=== PATIENT | female | born 1995 | race Caucasian/White ===

== ENCOUNTER 2020-01-30 11:33 | Emergency (ER) | payer OTHER, SELFPAY ==
[2020-01-30 11:42] VITALS: BP 122/78; PULSE 115; RESP 18; TEMP 36.8; O2SAT 98; BMI 25.0
--- NOTE | 2020-01-30 11:55 | ED_ITS ---
HPI - General Adult General Chief complaint: General Medical Stated complaint: covid test,fever,vomiting Time Seen by Provider: 01/30/20 11:44 Source: patient Mode of arrival: ambulatory Limitations: no limitations History of Present Illness HPI narrative: 24 y/o healtyh female presenting with headache, nausea and vomiting for the last 2 days. She states she also has muscle aches and fatigue. 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 She is up to date on her flu vaccine. She denies chance of , LMP a few days ago. No abdominal pain, chest pain, SOB, cough. MD complaint: flu-like symptoms Onset (ago): day(s) (2) Location: head Radiation: non-radiation Severity: moderate Quality: aching Pain Consistency: intermittent Relieving factors: medication Exacerbating factors: eating Associated symptoms: headaches, loss of appetite and nausea/vomiting Treatments prior to arrival: none Related Data Previous Rx's Medication Instructions Recorded ondansetron HCl [Zofran] 4 mg PO Q8H PRN #10 tab 01/30/20 Allergies Allergy/AdvReac Type Severity Reaction Status Date / Time No Known Allergies Allergy Verified 01/30/20 11:45 Review of Systems Review of Systems: Constitutional: No Fever, No Chills ENT/Mouth: + sore throat, No Rhinorrhea Eyes: No Eye Pain, No Swelling, No Redness Cardiovascular: No Chest Pain, No SOB, No Orthopnea, No Edema Respiratory: No Cough, No Sputum, No Wheezing, No dyspnea Gastrointestinal: + Nausea, + Vomiting, No Diarrhea, No abdominal Pain Genitourinary: No Dysuria, No Urinary Frequency, No Hematuria Musculoskeletal: No joint pain, + Myalgias Skin: No Skin Lesions, No rash Neuro: No Weakness, No Numbness, No Dizziness, + Headache PMFSH Past Medical History Attestation statement: The following information was validated with the patient. Medical History No known health problems Social History Social History Alcohol intake: never Smoked in Last 30 Days: No Use of substances other than those prescribed or required for medical reasons: No Advance Directives: No Advance Directives Information Provided: Yes Physical Exam Vital Signs: Vital Signs: Last Vital Signs Temp 98.2 F 01/30/20 11:42 Pulse 115 H 11/29/20 11:42 Resp 18 01/30/20 11:42 BP 122/78 01/30/20 11:42 Pulse Ox 98 01/30/20 11:42 Body Mass Index 25.0 Appearance: Alert. Oriented X3. No acute distress. Eyes: Pupils equal, round and reactive to light. ENT: Pharynx normal. Neck: Normal inspection. Neck supple. CVS: Normal heart rate and rhythm. Pulses normal. Respiratory: No respiratory distress. Breath sounds normal. Abdomen: Soft and nontender. +BS x4 Neuro: Oriented X 3. Non-focal Course Course Course Narrative: 24 y/o female presenting with headache, N/V and malaise. +COVID exposure. Mild tachycardia on arrival but patient appears well, talking on her cell phone. No vomiting since this morning. Tolerating PO juice and isatu gianni. She denies palpitations and chest pain. No SOB. Will test for COVID and d/c home. Warning signs discussed on when to return to the hospital. Critical Care Time Critical Care Time Critical Care Time: No Discharge Plan Discharge Clinical Impression: Acute viral syndrome Patient Disposition: Home, Self-Care Instructions: Viral Syndrome (ED), COVID-19 (Coronavirus Disease 2019) (ED) Additional Instructions: You were tested for COVID-19 today - we will call you with the results in 2-6 days. [facility] this week as planned. Do not go out in public while you are feeling ill, if your COVID-19 is positive you cannot go out in public for 10-14 days. Continue to wear your mask and wash your hands frequently. Continue to take over the counter cold and flu medications as needed for your symptoms. Take Tylenol and/or Motrin as needed for fever and body aches. Rest, stay hydrated. If you develop difficultly breathing, shortness of breath or chest pain call 911 or come back to the hospital for further evaluation. Follow up with your doctor this week. Prescriptions: New ondansetron HCl [Zofran] 4 mg tablet 4 mg PO Q8H PRN (Reason: nausea and vomiting) Qty: 10 RF: 0
== END 2020-01-30 12:09 | disposition home or self-care (01) ==
PROVIDERS: Physician Assistant; Emergency Provider Internal Medicine; PCP Internal Medicine
DX: B34.9 Viral infection, unspecified (principal); R50.9 Fever, unspecified; R11.10 Vomiting, unspecified; Z79.899 Other long term (current) drug therapy; Z20.828 Contact with and (suspected) exposure to other viral communicable diseases
CPT/HCPCS: 99283; U0003

== ENCOUNTER 2020-03-07 16:09 | Outpatient (REF) | payer OTHER, SELFPAY | END 2020-03-07 16:10 | disposition home or self-care (01) | LOC: HO.LAB 16:09 | PROVIDERS: Visit Provider Internal Medicine | DX: Z20.828 Contact with and (suspected) exposure to other viral communicable diseases (principal) | CPT/HCPCS: 36415; C9803; U0003 ==

== ENCOUNTER 2022-03-05 12:25 | Emergency (ER) | payer OTHER, SELFPAY ==
--- NOTE | ~2022-03-05 | US_ITS ---
EXAMINATION: US OBSTETRICAL ULTRASOUND CLINICAL INFORMATION: Vaginal bleeding and pain. Patient reportedly at 18 weeks of . LMP: 11/07/2021. COMPARISON: None. TECHNIQUE: Sonographic imaging of the pelvis is performed using transabdominal and transvaginal transducers. FINDINGS: UTERUS AND CERVIX The anteflexed, anteverted uterus measures 8.8 x 3.6 x 4.9 cm ([id number] x AP x transverse dimension). The myometrial echotexture is normal. No evidence of leiomyoma. The cervix is approximately 3 cm in length. The endometrium is mildly heterogeneous but without evidence of focal lesion and there is no abnormal vascularity within the endometrium which measures up to 1.2 cm AP (image 5 of 64). ADNEXA: The right ovary is 5.1 x 5.2 x 4.8 cm, volume of 67 mL. There is a 4.4 x 4.6 x 4.8 cm simple cyst of the right ovary. Left ovary is 3.2 x 2 x 2.6 cm, volume of 8.6 mL. No adnexal masses. FREE FLUID: No pelvic free fluid. US/US OB pelvic and transvaginal IMPRESSION: No evidence of either an intrauterine or ectopic . Given the history of vaginal bleeding during , a spontaneous is suspected. Recommend correlation with the quantitative beta hCG levels. 4.8 cm simple cyst of the right ovary is almost certainly benign. No follow-up imaging is recommended for a simple cyst of this size in a premenopausal patient (if the cyst is asymptomatic).
--- NOTE | 2022-03-05 13:05 | ED_ITS ---
HPI - General Chief complaint: Vaginal Bleeding <SHE Zhao - Last Filed: 03/05/22 13:11> Stated complaint: Miscarriage <SHE Zhao - Last Filed: 03/05/22 13:11> Time Seen by Provider: 03/05/22 14:05 <SHE Zhao - Last Filed: 03/05/22 13:11> Source: patient <Minnie Bailey DO - Last Filed: 03/05/22 17:00> Mode of arrival: ambulatory <Minnie Bailey DO - Last Filed: 03/05/22 17:00> Limitations: no limitations <Minnie Bailey DO - Last Filed: 03/05/22 17:00> History of Present Illness HPI Narrative: 26 yo female G1 LMP 11/07 test positive via urine and blood on January US at [facility] confirmed IUP and dates she states she is 16 weeks - she has not had OB care otherwise. Her course notes February 01 a roberson of significant blood that resolved and at that time she did not notice a passage of tissue and the bleeding stopped. [place] was seen in [place] in the last month for abdominal pain no bleeding but no labs urine or US were done. She notes since yesterday 5pm she has been passing stringy clots and going t hrough 2 pads per hour. She has cramping as well. <Minnie Bailey DO - Last Filed: 03/05/22 17:00> MD Complaint: abdominal pain and vaginal bleeding <Minnie Bailey DO - Last Filed: 03/05/22 17:00> Onset (ago): day(s) (last night around 5pm) <Minnie Bailey DO - Last Filed: 03/05/22 17:00> Pain Consistency: intermittent <Minnie Bailey DO - Last Filed: 03/05/22 17:00> Location: pelvis <Minnie Bailey DO - Last Filed: 03/05/22 17:00> Severity: mild <Minnie Bailey DO - Last Filed: 03/05/22 17:00> Quality: Cramping <Minnie Bailey DO - Last Filed: 03/05/22 17:00> Radiation: pelvis <Minnie Bailey DO - Last Filed: 03/05/22 17:00> Relieving factors: none <Minnie Bailey DO - Last Filed: 03/05/22 17:00> Exacerbating factors: none <Minnie Bailey DO - Last Filed: 03/05/22 17:00> Associated symptoms: denies other symptoms <Minnie Bailey DO - Last Filed: 03/05/22 17:00> Vaginal bleeding: heavy and clots <Minnie Bailey DO - Last Filed: 03/05/22 17:00> Date of Last Menstrual Period: 11/07/21 <Minnie Bailey DO - Last Filed: 03/05/22 17:00> Patient : Yes <Minnie Bailey DO - Last Filed: 03/05/22 17:00> Number of Weeks : 18 <Minnie Bailey DO - Last Filed: 03/05/22 17:00> OB History - Current : other (has not seen OB just been to [facility] ED once in January) <Minnie Bailey DO - Last Filed: 03/05/22 17:00> care: none <Minnie Bailey DO - Last Filed: 03/05/22 17:00> Related Data Home medications: Previous Rx's Medication Instructions Recorded ondansetron HCl 4 mg tablet 4 mg PO Q8H PRN nausea and 01/30/20 (Zofran) vomiting #10 tabs <SHE Zhao - Last Filed: 03/05/22 13:11> Allergies/Adverse reactions: Allergies Allergy/AdvReac Type Severity Reaction Status Date / Time No Known Allergies Allergy Verified 01/30/20 11:45 <SHE Zhao Last Filed: 03/05/22 13:11> Review of Systems Review of Systems: Constitutional : No Fever, No Chills ENT/Mouth : No sore throat, No Rhinorrhea Eyes: No Eye Pain, No Redness Cardiovascular : No Chest Pain, No SOB Respiratory : No Cough, No Sputum, No Wheezing Gastrointestinal : positive Nausea, No Vomiting, No Diarrhea, positive abdominal pain, Genitourinary : positive irregular bleeding, No Dysuria, No Urinary Frequency, positive pelvic pain Musculoskeletal : No Myalgias Skin : No rash Neuro : No Weakness, No Headache Psych : No Anxiety/Panic, No Depression Heme/Lymph: No bruising, No Lymphadenopathy Endocrine : No Polyuria, No Polydipsia All other systems reviewed and are negative <Minnie Bailey DO - Last Filed: 03/05/22 17:00> [facility] Past Medical History Attestation statement: The following information was validated with the patient. <Minnie BaileyDO - Last Filed: 03/05/22 17:00> Medical History: Medical History (Updated 03/05/22 @ 16:34 by Emiliano Hamm MD) No known health problems <SHE Zhao - Last Filed: 03/05/22 13:11> Date of Last Menstrual Period: 11/07/21 <Minnie Bailey DO - Last Filed: 03/05/22 17:00> Social History Social History: Social History Alcohol intake: never Patient Tobacco Use Status: Never used Tobacco Smoked in Last 30 Days: No Use of substances other than those prescribed or required for medical reasons: No Advance Directives: No Advance Directives Information Provided: No Patient : Yes <SHE Zhao - Last Filed: 03/05/22 13:11> Physical Exam Vital Signs: Vital Signs: Last Vital Signs Temp 98.6 F 03/05/22 13:06 Pulse 89 03/05/22 13:06 Resp 18 03/05/22 13:06 BP 112/72 03/05/22 13:06 Pulse Ox 100 03/05/22 13:06 O2 Del Method 03/05/22 13:06 BMI result Body Mass Index 20.7 <SHE Zhao - Last Filed: 03/05/22 13:11> Vital Signs: Last Vital Signs Temp 98.6 F 03/05/22 13:06 Pulse 89 03/05/22 13:06 Resp 18 03/05/22 13:06 BP 112/72 03/05/22 13:06 Pulse Ox 100 03/05/22 13:06 O2 Del Method 03/05/22 13:06 BMI result Body Mass Index 20.7 <Minnie Bailey DO - Last Filed: 03/05/22 17:00> Appearance: Alert. Oriented X3. No acute distress. Eyes: Pupils equal, round and reactive to light. ENT: Pharynx normal. Neck: Normal inspection. Neck supple. CVS: Normal heart rate and rhythm. Pulses normal. Respiratory: No respiratory distress. Breath sounds normal. Abdomen: Soft and nontender. : moderate bleeding, no clots 8 scopettes of blood Skin: Skin warm and dry. Normal skin color. Normal skin turgor. Extremities: No lower extremity edema. No calf ttp Neuro: Oriented X 3. No motor deficit. No sensory deficit. <Minnie Bailey DO - Last Filed: 03/05/22 17:00> Course Course Course Narrative: RME--26yo F at about 18 weeks gestation, LMP 12/07/21 c/o vaginal bleeding with clots since last night w/ assoc lower abdominal pain. Admits to filling 2 pads every hour. Admits to poor pre-arnel care Nontoxic appearing, VSS, pt will be next to go back to main ED Labs, UA, ABO/RH, OB US, IVF ordered in triage <SHE Zhao - Last Filed: 03/05/22 13:11> RME--26yo F at about 18 weeks gestation, LMP 12/07/21 c/o vaginal bleeding with clots since last night w/ assoc lower abdominal pain. Admits to filling 2 pads every hour. Admits to poor pre- care Nontoxic appearing, VSS, pt will be next to go back to main ED Labs, UA, ABO/RH, OB US, IVF ordered in triage [facility] records US shows 01/11 IUP HR 178, measured with LMP dates at that time O POS H/H stable declines OB exam with Dr. Hamm - he recommends 48 hour hcg, swabs, send home with precautions <Minnie Bailey DO - Last Filed: 03/05/22 17:00> Medications Administered Discontinued Medications Generic Name Dose Route Start Last Admin Trade Name Freq PRN Reason Stop Dose Admin Sodium Chloride 1,000 mls @ 999 mls/hr 03/05/22 13:15 03/05/22 15:37 Ns IV 03/05/22 14:15 Infused .Q1H1M STEFFEN Infusion <SHE Zhao - Last Filed: 03/05/22 13:11> Medications Administered Discontinued Medications Generic Name Dose Route Start Last Admin Trade Name Freq PRN Reason Stop Dose Admin Sodium Chloride 1,000 mls @ 999 mls/hr 03/05/22 13:15 03/05/22 15:37 Ns IV 03/05/22 14:15 Infused .Q1H1M STEFFEN Infusion <Minnie Bailey DO - Last Filed: 03/05/22 17:00> Medical Decision Making Medical Decision Making [facility] Narrative: 26 yo female G1 here with vaginal bleeding - 16 weeks dates = to US at [facility] from US in january, records are requested. She notes vaginal bleeding since yesterday and pain. Her US shows retained POC - quant ordered, type and screen will consult OBGYN for recommendations. Suspect incomplete miscarriage at this time. Patient kept NPO on arrival after I saw her I have reviewed and interpreted the patient's labs and reviewed and interpreted radiologist readings of studies done in ED today. <Minnie Bailey DO - Last Filed: 03/05/22 17:00> Differential Diagnosis Differential Diagnoses: The differential diagnosis associated with the presentation includes <Minnie Bailey DO - Last Filed: 03/05/22 17:00> threatened miscarriage, vaginal bleeding <Minnie Bailey DO - Last Filed: 03/05/22 17:00> Consult Healthcare Provider Management of the patient was discussed with: Contract Modeler (OB - Dr. Hamm will evaluate patient) <Minnie Bailey DO - Last Filed: 03/05/22 17:00> Lab Data [facility] Lab Attestation statement: I reviewed the patient's lab results. <Minnie Bailey DO - Last Filed: 03/05/22 17:00> Result Diagrams: : 03/05/22 14:06 03/05/22 14:06 <SHE Zhao - Last Filed: 03/05/22 13:11> Labs: Lab Results 03/05/22 03/05/22 03/05/22 Range/Units 13:22 14:06 14:06 WBC 6.7 (4.8-10.8) X10*3/uL RBC 4.49 (4.20-5.50) X10*6/uL Hgb 14.1 (12.0-16.0) g/dl Hct 42.6 (37.0-47.0) % MCV 94.9 (80.0-98.0) fL MCH 31.4 (27.0-33.0) pg MCHC 33.1 (31.0-35.0) g/dl RDW 12.2 (11.0-16.0) % Plt Count 234 (160-400) X10*3/uL MPV 9.4 (9.4-12.3) fL Immature Gran % (Auto) 0.1 (0.0-0.4) % Neut % (Auto) 71.1 (45-73) % Lymph % (Auto) 22.4 (20-40) % [place] % (Auto) 5.6 (2-11) % Eos % (Auto) 0.7 (0-4) % Baso % (Auto) 0.1 (0-2) % Lymph # (Auto) 1.5 (1.2-4.9) X10*3/uL [place] # (Auto) 0.4 (0.1-1.2) X10*3/uL Eos # (Auto) 0.1 (0.0-0.4) X10*3/uL Baso # (Auto) 0.0 (0.0-0.2) X10*3/uL Abs Immat Gran (auto) 0.01 (0.00-0.03) X10*3/uL Absolute Neuts (auto) 4.8 (2.0-8.3) x10*3/uL Absolute Nucleated RBC 0.000 (0.0-0.012) X10*3/uL Nucleated RBC % (auto) 0.0 (0.0-0.2) /100WBC PT (10.0-13.1) SEC INR (0.9-1.1) Sodium 139 (135-145) mmol/L Potassium 4.1 (3.3-5.1) mmol/L Chloride 106 (96-108) mmol/L Carbon Dioxide 29 (22-29) mmol/L Anion Gap 8 L (12-20) BUN 9 (9-16) mg/dL Creatinine 0.72 (0.5-1.4) mg/dL Estim Creat Clear Calc 107.8 Estimated GFR > 60 Random Glucose 88 (60-115) mg/dL Calcium 9.6 (8.4-10.2) mg/dL Magnesium 1.8 (1.6-2.6) mg/dL Total Bilirubin 1.5 H (0.0-1.0) mg/dL Direct Bilirubin 0.4 (0.0-0.5) mg/dL AST 13 (5-31) U/L ALT 6 (0-31) U/L Alkaline Phosphatase 48 (39-117) U/L Total Protein 6.8 (6.5-8.0) g/dL Albumin 4.2 (3.5-5.0) g/dL Lipase 35 (8-78) U/L Beta HCG, Quant 17 mIU/mL Urine Color ORANGE Urine Appearance Cloudy Urine pH 5.5 (5.0-9.0) Ur Specific [place] >= 1.030 H (1.005-1.025) Urine Protein 30 (1+) H (Neg-Trace) mg/dL Urine Glucose (UA) Negative (Negative) mg/dL Urine Ketones Trace (Negative) mg/dL Urine Blood Large (3+) H (Negative) Urine Nitrite Negative (Negative) Ur Leukocyte Esterase Negative (Negative) Urine RBC >20 H (0-2) /HPF Urine WBC 0-5 (0-5) /HPF Ur Squamous Epith Cells 3-5 (0-2) /HPF Urine Bacteria None Seen (None Seen) Hyaline Casts 0-2 (0-2) /LPF COVID-19 (LILIANA) (Negative) COVID-19 Clin Com Blood Type 03/05/22 03/05/22 03/05/22 Range/Units 14:06 14:38 15:06 WBC (4.8-10.8) X10*3/uL RBC (4.20-5.50) X10*6/uL Hgb (12.0-16.0) g/dl Hct (37.0-47.0) % MCV (80.0-98.0) fL MCH (27.0-33.0) pg MCHC (31.0-35.0) g/dl RDW (11.0-16.0) % Plt Count (160-400) X10*3/uL MPV (9.4-12.3) fL Immature Gran % (Auto) (0.0-0.4) % Neut % (Auto) (45-73) % Lymph % (Auto) (20-40) % [place] % (Auto) (2-11) % Eos % (Auto) (0-4) % Baso % (Auto) (0-2) % Lymph # (Auto) (1.2-4.9) X10*3/uL [place] # (Auto) (0.1-1.2) X10*3/uL Eos # (Auto) (0.0-0.4) X10*3/uL Baso # (Auto) (0.0-0.2) X10*3/uL Abs Immat Gran (auto) (0.00-0.03) X10*3/uL Absolute Neuts (auto) (2.0-8.3) x10*3/uL Absolute Nucleated RBC (0.0-0.012) X10*3/uL Nucleated RBC % (auto) (0.0-0.2) /100WBC PT 12.1 (10.0-13.1) SEC INR 1.1 (0.9-1.1) Sodium (135-145) mmol/L Potassium (3.3-5.1) mmol/L Chloride (96-108) mmol/L Carbon Dioxide (22-29) mmol/L Anion Gap (12-20) BUN (9-16) mg/dL Creatinine (0.5-1.4) mg/dL Estim Creat Clear Calc Estimated GFR Random Glucose (60-115) mg/dL Calcium (8.4-10.2) mg/dL Magnesium (1.6-2.6) mg/dL Total Bilirubin (0.0-1.0) mg/dL Direct Bilirubin (0.0-0.5) mg/dL AST (5-31) U/L ALT (0-31) U/L Alkaline Phosphatase (39-117) U/L Total Protein (6.5-8.0) g/dL Albumin (3.5-5.0) g/dL Lipase (8-78) U/L Beta HCG, Quant mIU/mL Urine Color Urine Appearance Urine pH (5.0-9.0) Ur Specific [place] (1.005-1.025) Urine Protein (Neg-Trace) mg/dL Urine Glucose (UA) (Negative) mg/dL Urine Ketones (Negative) mg/dL Urine Blood (Negative) Urine Nitrite (Negative) Ur Leukocyte Esterase (Negative) Urine RBC (0-2) /HPF Urine WBC (0-5) /HPF Ur Squamous Epith Cells (0-2) /HPF Urine Bacteria (None Seen) Hyaline Casts (0-2) /LPF COVID-19 (LILIANA) Negative (Negative) COVID-19 Clin Com See Note Blood Type O Positive <SHE Zhao - Last Filed: 03/05/22 13:11> Lab Results 03/05/22 03/05/22 03/05/22 Range/Units 13:22 14:06 14:06 WBC 6.7 (4.8-10.8) X10*3/uL RBC 4.49 (4.20-5.50) X10*6/uL Hgb 14.1 (12.0-16.0) g/dl Hct 42.6 (37.0-47.0) % MCV 94.9 (80.0-98.0) fL MCH 31.4 (27.0-33.0) pg MCHC 33.1 (31.0-35.0) g/dl RDW 12.2 (11.0-16.0) % Plt Count 234 (160-400) X10*3/uL MPV 9.4 (9.4-12.3) fL Immature Gran % (Auto) 0.1 (0.0-0.4) % Neut % (Auto) 71.1 (45-73) % Lymph % (Auto) 22.4 (20-40) % [place] % (Auto) 5.6 (2-11) % Eos % (Auto) 0.7 (0-4) % Baso % (Auto) 0.1 (0-2) % Lymph # (Auto) 1.5 (1.2-4.9) X10*3/uL [place] # (Auto) 0.4 (0.1-1.2) X10*3/uL Eos # (Auto) 0.1 (0.0-0.4) X10*3/uL Baso # (Auto) 0.0 (0.0-0.2) X10*3/uL Abs Immat Gran (auto) 0.01 (0.00-0.03) X10*3/uL Absolute Neuts (auto) 4.8 (2.0-8.3) x10*3/uL Absolute Nucleated RBC 0.000 (0.0-0.012) X10*3/uL Nucleated RBC % (auto) 0.0 (0.0-0.2) /100WBC PT (10.0-13.1) SEC INR (0.9-1.1) Sodium 139 (135-145) mmol/L Potassium 4.1 (3.3-5.1) mmol/L Chloride 106 (96-108) mmol/L Carbon Dioxide 29 (22-29) mmol/L Anion Gap 8 L (12-20) BUN 9 (9-16) mg/dL Creatinine 0.72 (0.5-1.4) mg/dL Estim Creat Clear Calc 107.8 Estimated GFR > 60 Random Glucose 88 (60-115) mg/dL Calcium 9.6 (8.4-10.2) mg/dL Magnesium 1.8 (1.6-2.6) mg/dL Total Bilirubin 1.5 H (0.0-1.0) mg/dL Direct Bilirubin 0.4 (0.0-0.5) mg/dL AST 13 (5-31) U/L ALT 6 (0-31) U/L Alkaline Phosphatase 48 (39-117) U/L Total Protein 6.8 (6.5-8.0) g/dL Albumin 4.2 (3.5-5.0) g/dL Lipase 35 (8-78) U/L Beta HCG, Quant 17 mIU/mL Urine Color ORANGE Urine Appearance Cloudy Urine pH 5.5 (5.0-9.0) Ur Specific [place] >= 1.030 H (1.005-1.025) Urine Protein 30 (1+) H (Neg-Trace) mg/dL Urine Glucose (UA) Negative (Negative) mg/dL Urine Ketones Trace (Negative) mg/dL Urine Blood Large (3+) H (Negative) Urine Nitrite Negative (Negative) Ur Leukocyte Esterase Negative (Negative) Urine RBC >20 H (0-2) /HPF Urine WBC 0-5 (0-5) /HPF Ur Squamous Epith Cells 3-5 (0-2) /HPF Urine Bacteria None Seen (None Seen) Hyaline Casts 0-2 (0-2) /LPF COVID-19 (LILIANA) (Negative) COVID-19 Clin Com Blood Type 03/05/22 03/05/22 03/05/22 Range/Units 14:06 14:38 15:06 WBC (4.8-10.8) X10*3/uL RBC (4.20-5.50) X10*6/uL Hgb (12.0-16.0) g/dl Hct (37.0-47.0) % MCV (80.0-98.0) fL MCH (27.0-33.0) pg MCHC (31.0-35.0) g/dl RDW (11.0-16.0) % Plt Count (160-400) X10*3/uL MPV (9.4-12.3) fL Immature Gran % (Auto) (0.0-0.4) % Neut % (Auto) (45-73) % Lymph % (Auto) (20-40) % [place] % (Auto) (2-11) % Eos % (Auto) (0-4) % Baso % (Auto) (0-2) % Lymph # (Auto) (1.2-4.9) X10*3/uL [place] # (Auto) (0.1-1.2) X10*3/uL Eos # (Auto) (0.0-0.4) X10*3/uL Baso # (Auto) (0.0-0.2) X10*3/uL Abs Immat Gran (auto) (0.00-0.03) X10*3/uL Absolute Neuts (auto) (2.0-8.3) x10*3/uL Absolute Nucleated RBC (0.0-0.012) X10*3/uL Nucleated RBC % (auto) (0.0-0.2) /100WBC PT 12.1 (10.0-13.1) SEC INR 1.1 (0.9-1.1) Sodium (135-145) mmol/L Potassium (3.3-5.1) mmol/L Chloride (96-108) mmol/L Carbon Dioxide (22-29) mmol/L Anion Gap (12-20) BUN (9-16) mg/dL Creatinine (0.5-1.4) mg/dL Estim Creat Clear Calc Estimated GFR Random Glucose (60-115) mg/dL Calcium (8.4-10.2) mg/dL Magnesium (1.6-2.6) mg/dL Total Bilirubin (0.0-1.0) mg/dL Direct Bilirubin (0.0-0.5) mg/dL AST (5-31) U/L ALT (0-31) U/L Alkaline Phosphatase (39-117) U/L Total Protein (6.5-8.0) g/dL Albumin (3.5-5.0) g/dL Lipase (8-78) U/L Beta HCG, Quant mIU/mL Urine Color Urine Appearance Urine pH (5.0-9.0) Ur Specific [place] (1.005-1.025) Urine Protein (Neg-Trace) mg/dL Urine Glucose (UA) (Negative) mg/dL Urine Ketones (Negative) mg/dL Urine Blood (Negative) Urine Nitrite (Negative) Ur Leukocyte Esterase (Negative) Urine RBC (0-2) /HPF Urine WBC (0-5) /HPF Ur Squamous Epith Cells (0-2) /HPF Urine Bacteria (None Seen) Hyaline Casts (0-2) /LPF COVID-19 (LILIANA) Negative (Negative) COVID-19 Clin Com See Note Blood Type O Positive <Minnie Bailey DO - Last Filed: 03/05/22 17:00> Independent Interpretation I performed an independent interpretation of an: Ultrasound <Minnie Bailey DO - Last Filed: 03/05/22 17:00> Radiology Impression Discussion of test interpretation with radiology: I discussed test interpretation with the radiologist and I have reviewed the radiologist's reading. <Minnie Bailey DO - Last Filed: 03/05/22 17:00> External Record Review External record reviewed: Outpatient record and Prior outpatient radiology <Minnie Bailey DO - Last Filed: 03/05/22 17:00> Procedures Perimortem Number of Weeks : 18 <Minnie Bailey DO - Last Filed: 03/05/22 17:00> Discharge Plan Discharge Clinical Impression: Vaginal bleeding, Spontaneous <SHE Zhao - Last Filed: 03/05/22 13:11> Patient Disposition: Home, Self-Care <SHE Zhao Last Filed: 03/05/22 13:11> Instructions: Miscarriage (ED) <SHE Zhao - Last Filed: 03/05/22 13:11> Additional Instructions: return to ED for any worsening symptoms or concerns return for severe pain, increased bleeding, vomiting, dizziness, large clots bigger than golf ball no sexual intercourse until symptoms resolve repeat HCG here in 48 hours please follow up with OB <SHE Zhao - Last Filed: 03/05/22 13:11> Prescriptions: No Action ondansetron HCl [Zofran] 4 mg tablet 4 mg PO Q8H PRN (Reason: nausea and vomiting) Qty: 10 0RF <SHE Zhao - Last Filed: 03/05/22 13:11> Referrals: Emiliano Hamm MD [Physician] - 1 week <SHE Zhao - Last Filed: 03/05/22 13:11>
[2022-03-05 13:06] VITALS: BP 112/72; PULSE 89; RESP 18; TEMP 37; O2SAT 100; BMI 20.7
[2022-03-05 13:28] LABS: Appearance Urine Cloudy; Color Urine ORANGE; Glucose Urine UA Negative (Negative); Leukocyte Esterase Urine Negative (Negative); Nitrite Urine Negative (Negative); PH 5.5 (5.0-9.0); Specific Gravity - Urine >= 1.030 (1.005-1.025); UMIC TRIGGER UACC YES; Urine Blood Large (3+) (Negative); Urine Ketones Trace mg/dL (Negative); Urine Protein 30 (1+) mg/dL (Neg-Trace)
[2022-03-05 13:37] LABS: RBC Urine >20 /HPF (0-2); WBC Urine 0-5 /HPF (0-5)
[2022-03-05 13:38] LABS: Bacteria Urine None Seen (None Seen); Hyaline Casts Urine 0-2 /LPF (0-2)
[2022-03-05 14:12] LABS: MANUAL DIFF FLAG NO
[2022-03-05 14:15] LABS: Basophils Percent Auto 0.1 % (0-2); Eosinophils Absolute Auto 0.1 X10*3/uL (0.0-0.4); Eosinophils Percent Auto 0.7 % (0-4); Hematocrit 42.6 % (37.0-47.0); Hemoglobin 14.1 g/dl (12.0-16.0); Imm Gran Abs Auto 0.01 X10*3/uL (0.00-0.03); Imm Gran Pct Auto 0.1 % (0.0-0.4); Lymphocytes Absolute Auto 1.5 X10*3/uL (1.2-4.9); Lymphocytes Percent Auto 22.4 % (20-40); Mean Corpuscular HGB Conc 33.1 g/dl (31.0-35.0); Mean Corpuscular Hemoglobin 31.4 pg (27.0-33.0); Mean Corpuscular Volume 94.9 fL (80.0-98.0); Mean Platelet Volume 9.4 fL (9.4-12.3); Monocytes Absolute Auto 0.4 X10*3/uL (0.1-1.2); Monocytes Percent Auto 5.6 % (2-11); Neutrophils Absolute Auto 4.8 x10*3/uL (2.0-8.3); Neutrophils Percent Auto 71.1 % (45-73); Platelet Count 234 X10*3/uL (160-400); Red Blood Count 4.49 X10*6/uL (4.20-5.50); Red Cell Distribution Width 12.2 % (11.0-16.0); White Blood Count 6.7 X10*3/uL (4.8-10.8)
[2022-03-05] MEDS: 0.9 % Sodium Chloride 1,000 ML 999 ML IV (14:36)
--- NOTE | 2022-03-05 14:40 | PC.NURSE ---
iv inserted, labs previously drawn, covid swab obtained, ivf hung per order, pt states she had heavy bleeding started yesterday bled through multiple pads, today she had a roberson of blood prior to coming to the ed. call saul within reach, will continue to monitor
[2022-03-05 14:51] LABS: Alanine Aminotransferase 6 U/L (0-31); Albumin Level 4.2 g/dL (3.5-5.0); Alkaline Phosphatase 48 U/L (39-117); Anion Gap 8 (12-20); Aspartate Amino Transferase 13 U/L (5-31); Bilirubin Direct 0.4 mg/dL (0.0-0.5); Bilirubin Total 1.5 mg/dL (0.0-1.0); Blood Urea Nitrogen 9 mg/dL (9-16); Calcium 9.6 mg/dL (8.4-10.2); Carbon Dioxide 29 mmol/L (22-29); Chloride 106 mmol/L (96-108); Creatinine Clr Calc Pharmacy 107.8; Estimated Glomerular Filt Rate > 60; Glucose Random 88 mg/dL (60-115); Lipase 35 U/L (8-78); Magnesium 1.8 mg/dL (1.6-2.6); Potassium 4.1 mmol/L (3.3-5.1); Sodium 139 mmol/L (135-145); Total Protein 6.8 g/dL (6.5-8.0)
[2022-03-05 14:52] LABS: HCG Quantitative 17 mIU/mL
[2022-03-05 15:01] LABS: COVID-19 Test Negative (Negative); IDNOW Serial# 6674DD1D
[2022-03-05 15:17] LABS: INTERNATIONAL NORM RATIO 1.1 (0.9-1.1); Prothrombin Time 12.1 SEC (10.0-13.1)
--- NOTE | 2022-03-05 15:25 | PM.GYNCN ---
SEED BUYER - CN: HPI Data of Consult Consult date: 03/05/22 Primary Care Provider: None Physician Consult Narrative Narrative: I was consulted on Gabriela Malik who is a 26 year old female?para 0 LMP 11/07/21, had the 1st urine test positive on 12/11/21, on 01/11/2022 US at [facility] confirmed IUP at 9 weeks of gestation with positive heart rate, the patient had no care. The patient gives a history of heavy vaginal bleeding on February 01 that resolved spontaneously. She was seen in [place] in the last month for abdominal pain no bleeding but no labs urine or US were done. The patient has been complaining since yesterday 5pm of vaginal clots associated with pelvic cramping no fever or chills or any other complaints. Emergency room H&H was 14.1/42.6, hCG 17 and blood type is O positive cc:: CC: SWITCH TENDER - Review of Systems Review of Systems ROS Unobtainable: All systems reviewed & are unremarkable except as noted in HPI and below OB PMFSH Past Medical History Medical History (Updated 03/05/22 @ 16:34 by Emiliano Hamm MD) No known health problems Social History Social History Alcohol intake: never Patient Tobacco Use Status: Never used Tobacco Smoked in Last 30 Days: No Use of substances other than those prescribed or required for medical reasons: No Advance Directives: No Advance Directives Information Provided: No Patient : Yes Meds Allergies Allergy/AdvReac Type Severity Reaction Status Date / Time No Known Allergies Allergy Verified 01/30/20 11:45 SEED BUYER Physical Exam Vitals Vital signs: Temp Pulse Resp BP Pulse Ox O2 Del Method 98.6 F 89 18 112/72 100 03/05/22 13:06 03/05/22 13:06 03/05/22 13:06 03/05/22 13:06 03/05/22 13:06 03/05/22 13:06 BMI result Body Mass Index 20.7 Abdomen Auscultation/Inspection/Palpation: Soft, Non-distended and No tenderness Female Genitalia (Pelvic) Exam: Declined by Patient SEED BUYER - Results Labs CBC & Chem 7: 03/05/22 14:06 03/05/22 14:06 Labs: Short CBC 03/05/22 Range/Units 14:06 WBC 6.7 (4.8-10.8) X10*3/uL Hgb 14.1 (12.0-16.0) g/dl Hct 42.6 (37.0-47.0) % Plt Count 234 (160-400) X10*3/uL BMP 03/05/22 14:06 Sodium 139 Potassium 4.1 Chloride 106 Carbon Dioxide 29 BUN 9 Creatinine 0.72 Calcium 9.6 Liver Function 03/05/22 Range/Units 14:06 Total Bilirubin 1.5 H (0.0-1.0) mg/dL Direct Bilirubin 0.4 (0.0-0.5) mg/dL AST 13 (5-31) U/L ALT 6 (0-31) U/L Alkaline Phosphatase 48 (39-117) U/L Albumin 4.2 (3.5-5.0) g/dL Urine 03/05/22 Range/Units 13:22 Urine Color ORANGE Urine Appearance Cloudy Urine pH 5.5 (5.0-9.0) Ur Specific [place] >= 1.030 H (1.005-1.025) Urine Protein 30 (1+) H (Neg-Trace) mg/dL Urine Glucose (UA) Negative (Negative) mg/dL Imaging US - abdomen: Radiologist's impression: ITS Impressions Pelvic/Transvag US 03/05/22 13:37 IMPRESSION: No evidence of either an intrauterine or ectopic . Given the history of vaginal bleeding during , a spontaneous is suspected. Recommend correlation with the quantitative beta hCG levels. 4.8 cm simple cyst of the right ovary is almost certainly benign. No follow-up imaging is recommended for a simple cyst of this size in a premenopausal patient (if the cyst is asymptomatic). Assessment and Plan (1) Miscarriage: Status: Acute Explained to the patient that without a pelvic exam, my clinical assessment is inadequate therefore recommendation might be inaccurate, the patient verbalized understanding and stated that she feels uncomfortable with a male provider and would prefer a female provider; I recommended Dr. Bailey the following: Perform a pelvic exam if the patient allows it, and if there is no evidence of active bleeding, the patient will be discharged home, in addition recommended GC and chlamydia with BV panel and Trichomonas to be collected. Discussed with the patient the findings on pelvic ultrasound, normal H&H and hCG of 17, the differential diagnosis of her clinical situation including complete , incomplete or abnormal bleeding , recommended to the patient to follow-up in the outpatient office with repeat hCG in 48 hours. Incomplete warnings given the patient, she is to come back to emergency room in case of heavy vaginal bleeding, pelvic cramping, temperature above 100.4 otherwise follow-up in the office in 48 hours. Time Spent With Patient Time: Total time managing care of this patient today ____ minutes.
--- NOTE | 2022-03-05 16:19 | PC.NURSE ---
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
--- NOTE | 2022-03-05 16:50 | PC.NURSE ---
internal exam performed with female provider per request of patient, samples obtained and sent to lab
[2022-03-05 16:55] VITALS: BP 92/53; PULSE 81; O2SAT 99
[2022-03-05 19:04] LABS: CT PCR NOT DETECTED (Not Detect.); NG PCR NOT DETECTED (Not Detect.)
[2022-03-06 13:06] LABS: BV Int Neg Control Negative (Negative); BV Int Pos Control Positive (Positive)
== END 2022-03-05 17:19 | disposition home or self-care (01) ==
PROVIDERS: Nurse Practitioner Family; Physician Assistant; Emergency Provider Emergency Medicine
DX: O03.9 Complete or unspecified spontaneous abortion without complication (principal); Z20.822 Contact with and (suspected) exposure to COVID-19
CPT/HCPCS: 36415; 76801; 76817; 80048; 80076; 81001; 83690; 83735; 84702; 85025; 85610; 86900; 86901; 87480; 87491; 87510; 87591; 87635; 87660; 96360; 99284